=== PATIENT | male | born 1995 ===

== ENCOUNTER 2021-09-16 13:25 | Emergency (ER) | payer SELFPAY ==
[2021-09-16 13:59] LABS: AMPHETAMINES,URINE NEGATIVE (NEGATIVE); BARBITURATES,URINE NEGATIVE (NEGATIVE); BENZODIAZEPINE,URINE NEGATIVE (NEGATIVE); MDMA (ECSTASY), URINE NEGATIVE (NEGATIVE); METHADONE,URINE NEGATIVE (NEGATIVE); METHAMPHETAMINES,URINE NEGATIVE (NEGATIVE); OPIATES,URINE NEGATIVE (NEGATIVE); OXYCODONE,URINE NEGATIVE (NEGATIVE); PHENCYCLIDINE,URINE NEGATIVE (NEGATIVE); TCA,URINE NEGATIVE (NEGATIVE)
--- NOTE | 2021-09-16 14:05 | EDM.PDOC ---
ED HPI GENERAL MEDICAL PROBLEM - General Chief Complaint: Chest Pain Time Seen by Provider: 09/16/21 13:25 Source of Information: Reports: Patient, EMS, RN, RN Notes Reviewed History Limitations: Reports: No Limitations - History of Present Illness INITIAL COMMENTS - FREE TEXT/NARRATIVE: Alex is a 26 y/o male who presents to the ED via [facility] with complaints of chest pain. 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 He attest to a cardiac history of a RBBB for which he received evaluation by a card iologist in [place] who "..found nothing wrong." He characterizes the pain as sharp to his left chest with radiation into his left arm. At the worst he rates the pain a 4/10, currently the pain is 2/10. The patient denies recent illness, fever, shaking chills, vision changes, dizziness, palpitations, shortness of breath, nausea, vomiting, or abdominal pain. He has taken ASA 162mg; no medications were administered en route by EMS. The patient attests to smoking two packs of cigarettes per day; he drinks alcohol recreationally with his last drink occurring last week; he drinks several energy drinks throughout the day; he denies recreational drug use. Left Chest Pain Score (Numeric/FACES): 4 - Related Data Allergies Allergy/AdvReac Type Severity Reaction Status Date / Time No Known Allergies Allergy Verified 09/16/21 13:34 Home Meds: Home Meds . [No Known Home Meds] 09/16/21 [History] Past Medical History HEENT History: Reports: Impaired Vision Other HEENT History: wears glasses Other Cardiovascular History: was told had a minor bundle branch block Respiratory History: Reports: None Gastrointestinal History: Reports: None Genitourinary History: Reports: None Musculoskeletal History: Reports: None Neurological History: Reports: None Psychiatric History: Reports: None Endocrine/Metabolic History: Reports: Obesity/BMI 30+ Hematologic History: Reports: None Immunologic History: Reports: None Oncologic (Cancer) History: Reports: None Dermatologic History: Reports: None - Infectious Disease History Infectious Disease History: Reports: None - Past Surgical History Head Surgeries/Procedures: Reports: None GI Surgical History: Reports: Hernia Repair/Other Social & Family History - Tobacco Use Tobacco Use Status *Q: Current Every Day Tobacco User Years of Tobacco use: 6 Packs/Tins Daily: 2 Second Hand Smoke Exposure: No - Caffeine Use Caffeine Use: Reports: Coffee, Energy Drinks - Recreational Drug Use Recreational Drug Use: No ED ROS GENERAL - Review of Systems Review Of Systems: Comprehensive ROS is negative, except as noted in HPI. ED EXAM, GENERAL - Physical Exam Exam: See Below Exam Limited By: No Limitations General Appearance: Alert, No Apparent Distress Eye Exam: Bilateral Eye: EOMI, Normal Inspection, PERRL (3mm) Ears: Normal External Exam, Normal Canal, Hearing Grossly Normal, Normal TMs Nose: Normal Inspection, Normal Mucosa, No Blood Throat/Mouth: Normal Inspection, Normal Oropharynx, Normal Voice, No Airway Compromise Head: Atraumatic, Normocephalic Neck: Normal Inspection, Supple, Non-Tender, Full Range of Motion Respiratory/Chest: No Respiratory Distress, Lungs Clear, Normal Breath Sounds, N o Accessory Muscle Use, Chest Non-Tender. No: Crackles, Rales, Rhonchi, Wheezing, Stridor Cardiovascular: Normal Peripheral Pulses, Regular Rate, Rhythm, No Gallop, No Murmur, No Rub Peripheral Pulses: 2+: Radial (L), Radial (R) GI/Abdominal: Normal Bowel Sounds, Soft, Non-Tender, No Distention, No Abnormal Bruit, No Mass, Pelvis Stable (Male) Exam: Deferred Rectal (Males) Exam: Deferred Back Exam: Normal Inspection, Full Range of Motion Extremities: Normal Inspection, Normal Range of Motion, Normal Capillary Refill Neurological: Alert, Oriented, CN II-XII Intact, Normal Cognition, Normal Gait, No Motor/Sensory Deficits Psychiatric: Normal Affect, Normal Mood Skin Exam: Warm, Dry, Intact, Normal Color, No Rash. No: Cyanosis, Jaundice, Mottled, Pallor #1 Interpretation EKG Date: 09/16/21 Time: 13:18 Rhythm: NSR Rate (Beats/Min): 86 [place]: Normal P-Wave: Present QRS: Wide (0.119) ST-T: Elevated (>0.1 in V2-V6) QT: Normal WA/PQ Interval: 0.147 Comparison: NA - No Prior EKG EKG Interpretation Comments: NSR; >0.1ST elevation in V2-V6; No evidence of acute myocardial ischemia #2 Interpretation EKG Date: 09/16/21 Time: 15:36 Rhythm: NSR Rate (Beats/Min): 78 [place]: Normal P-Wave: Present QRS: Wide (0.118) ST-T: Elevated (>0.1 V2-V6) QT: Normal WA/PQ Interval: 0.143 Comparison: No Change EKG Interpretation Comments: NSR; >0.1ST elevation in V2-V6; No evidence of acute myocardial ischemia Course - Vital Signs Last Recorded V/S: Last Vital Signs Temp 99 F 09/16/21 13:23 Pulse 85 09/16/21 13:23 Resp 16 09/16/21 13:23 BP 132/88 09/16/21 13:23 Pulse Ox 98 09/16/21 13:23 - Orders/Labs/Meds Labs: Laboratory Tests 09/16/21 09/16/21 09/16/21 Range/Units 13:25 13:25 13:25 WBC 9.1 (5.0-10.0) 10^3/uL RBC 4.88 (4.6-6.2) 10^6/uL Hgb 15.6 (14.0-18.0) g/dL Hct 45.7 (40.0-54.0) % MCV 93.6 (80-100) fL MCH 32.0 (27.0-34.0) pg MCHC 34.1 (33.0-35.0) g/dL Plt Count 263 (150-450) 10^3/uL Neut % (Auto) 68.9 (42.2-75.2) % Lymph % (Auto) 24.3 (20.5-50.1) % Carbon % (Auto) 5.8 (2-8) % Eos % (Auto) 0.8 L (1.0-3.0) % Baso % (Auto) 0.2 (0.0-1.0) % Sodium 142 (136-145) mmol/L Potassium 4.4 (3.5-5.1) mmol/L Chloride 105 (98-107) mmol/L Carbon Dioxide 28 (21-32) mmol/L Anion Gap 13.4 H (7-13) mEq/L BUN 14 (7-18) mg/dL Creatinine 1.00 (0.70-1.30) mg/dL Est Cr Clr Drug Dosing 121.32 mL/min Estimated GFR (MDRD) > 60 BUN/Creatinine Ratio 14.0 (No establ ref range) Glucose 80 (70-99) mg/dL Calcium 9.0 (8.5-10.1) mg/dL Total Bilirubin 0.3 (0.2-1.0) mg/dL AST 28 (15-37) U/L ALT 60 (16-63) U/L Alkaline Phosphatase 59 (46-116) U/L Troponin I High Sens 5 (<=76) pg/mL C-Reactive Protein < 0.2 (0.0-0.9) mg/dL B-Natriuretic Peptide < 5 (0-100) pg/ml Total Protein 7.2 (6.4-8.2) g/dL Albumin 4.1 (3.4-5.0) g/dL Globulin 3.1 Albumin/Globulin Ratio 1.3 Urine Color (YELLOW) Urine Appearance (CLEAR) Urine pH (5.0-9.0) Ur Specific [place] (1.005-1.030) Urine Protein (NEGATIVE) Urine Glucose (UA) (NEGATIVE) Urine Ketones (NEGATIVE) Urine Occult Blood (NEGATIVE) Urine Nitrite (NEGATIVE) Urine Bilirubin (NEGATIVE) Urine Urobilinogen (0.2-1.0) mg/dL Ur Leukocyte Esterase (NEGATIVE) Urine Opiates Screen (NEGATIVE) Ur Oxycodone Screen (NEGATIVE) Urine Methadone Screen (NEGATIVE) Ur Barbiturates Screen (NEGATIVE) U Tricyclic Antidepress (NEGATIVE) Ur Phencyclidine Scrn (NEGATIVE) Ur Amphetamine Screen (NEGATIVE) U Methamphetamines Scrn (NEGATIVE) Urine MDMA Screen (NEGATIVE) U Benzodiazepines Scrn (NEGATIVE) Urine Cocaine Screen (NEGATIVE) U Marijuana (THC) Screen (NEGATIVE) 09/16/21 09/16/21 09/16/21 Range/Units 13:40 13:40 15:33 WBC (5.0-10.0) 10^3/uL RBC (4.6-6.2) 10^6/uL Hgb (14.0-18.0) g/dL Hct (40.0-54.0) % MCV (80-100) fL MCH (27.0-34.0) pg MCHC (33.0-35.0) g/dL Plt Count (150-450) 10^3/uL Neut % (Auto) (42.2-75.2) % Lymph % (Auto) (20.5-50.1) % Carbon % (Auto) (2-8) % Eos % (Auto) (1.0-3.0) % Baso % (Auto) (0.0-1.0) % Sodium (136-145) mmol/L Potassium (3.5-5.1) mmol/L Chloride (98-107) mmol/L Carbon Dioxide (21-32) mmol/L Anion Gap (7-13) mEq/L BUN (7-18) mg/dL Creatinine (0.70-1.30) mg/dL Est Cr Clr Drug Dosing mL/min Estimated GFR (MDRD) BUN/Creatinine Ratio (No establ ref range) Glucose (70-99) mg/dL Calcium (8.5-10.1) mg/dL Total Bilirubin (0.2-1.0) mg/dL AST (15-37) U/L ALT (16-63) U/L Alkaline Phosphatase (46-116) U/L Troponin I High Sens 5 (<=76) pg/mL C-Reactive Protein (0.0-0.9) mg/dL B-Natriuretic Peptide (0-100) pg/ml Total Protein (6.4-8.2) g/dL Albumin (3.4-5.0) g/dL Globulin Albumin/Globulin Ratio Urine Color Yellow (YELLOW) Urine Appearance Clear (CLEAR) Urine pH 7.5 (5.0-9.0) Ur Specific [place] 1.025 (1.005-1.030) Urine Protein Negative (NEGATIVE) Urine Glucose (UA) Negative (NEGATIVE) Urine Ketones Negative (NEGATIVE) Urine Occult Blood Negative (NEGATIVE) Urine Nitrite Negative (NEGATIVE) Urine Bilirubin Negative (NEGATIVE) Urine Urobilinogen 0.2 (0.2-1.0) mg/dL Ur Leukocyte Esterase Negative (NEGATIVE) Urine Opiates Screen Negative (NEGATIVE) Ur Oxycodone Screen Negative (NEGATIVE) Urine Methadone Screen Negative (NEGATIVE) Ur Barbiturates Screen Negative (NEGATIVE) U Tricyclic Antidepress Negative (NEGATIVE) Ur Phencyclidine Scrn Negative (NEGATIVE) Ur Amphetamine Screen Negative (NEGATIVE) U Methamphetamines Scrn Negative (NEGATIVE) Urine MDMA Screen Negative (NEGATIVE) U Benzodiazepines Scrn Negative (NEGATIVE) Urine Cocaine Screen Negative (NEGATIVE) U Marijuana (THC) Screen Negative (NEGATIVE) - Re-Assessments/Exams Free Text/Narrative Re-Assessment/Exam: 09/16/21 CXR and EKG performed while labs pending. Patient states pain has completely resolved. Will trend troponin and EKG given short time frame from chest pain onset. EKG remains unremarkable and troponin unchanged. Findings of examination, lab work, and imaging reviewed with patient. Patient instructed to follow up with primary care provider in 3-5 days regarding todays visit. Red flag signs and symptoms which would warrant immediate reevaluation reviewed. Patient verbalized understanding and agreement with the plan of care. Departure - Departure Time of Disposition: 16:21 Disposition: Home, Self-Care 01 Condition: Good Clinical Impression: Nonspecific chest pain, Bundle branch block Forms: ED Department Discharge Additional Instructions: 1.) Follow up with your primary care provider in 3-5 days. 2.) Attempt to reduce your cigarette use and energy drink consumption, as both are strenuous on the heart. 3.) Return to the emergency department with any return of symptoms. Sepsis Event Note (ED) - Evaluation Sepsis Screening Result: No Definite Risk
[2021-09-16 14:14] LABS: ANION GAP 13.4 mEq/L (7-13); CHLORIDE,CL 105 mmol/L (98-107); SODIUM,NA 142 mmol/L (136-145)
== END 2021-09-16 16:34 | disposition home or self-care (01) ==
LOC: DL.ED 13:25
DX: I45.4 Nonspecific intraventricular block (principal); R07.9 Chest pain, unspecified; F17.210 Nicotine dependence, cigarettes, uncomplicated; E66.9 Obesity, unspecified; Z68.35 Body mass index [BMI] 35.0-35.9, adult
CPT/HCPCS: 36415; 80053; 80305-QW; 81003; 83880; 84484; 85025; 86140; 93005; 99285-25